=== PATIENT | female | born 1980 | race Two or more races ===

== ENCOUNTER 2024-03-04 10:23 | Emergency (ER) | payer MEDICAID ==
[~2024-03-04] VITALS: Ht 162.6 cm; Wt 58.5 kg
[2024-03-04 10:23] VITALS: BP 103/64; TEMP 98.6
[2024-03-04 11:41] LABS: PREGNANCY TEST URINE QUAL POSITIVE (NEGATIVE)
[2024-03-04 11:44] LABS: APPEARANCE,URINE CLEAR (CLEAR); BILIRUBIN,URINE NEGATIVE (NEGATIVE); BLOOD, URINE NEGATIVE Ery/uL (NEGATIVE); COLOR,URINE YELLOW (YELLOW); KETONES,URINE NEGATIVE (NEGATIVE); LEUKOCYTE ESTERASE ,URINE NEGATIVE (NEGATIVE); NITRITE, URINE POSITIVE (NEGATIVE); PH,URINE 8.5 (5.0-8.0); PROTEIN,URINE NEGATIVE (NEGATIVE); UGLUCOSE NEGATIVE (NEGATIVE); UROBILINOGEN,URINE 0.2 EU/dL (0.2)
[2024-03-04 12:08] LABS: BACTERIA,URINE Many /HPF (None Seen); SQUAMOUS EPITHELIAL CELL,UR Few /HPF (None Seen)
[2024-03-04 12:09] LABS: ADD URINE CULTURE YES; RBC,URINE 0-2 /HPF (0-2); WBC,URINE 21-50 /HPF (0-3)
[2024-03-04] MEDS ORDERED: CEFD300C3 PO (12:28)
[2024-03-04 12:43] VITALS: O2SAT 98
== END 2024-03-04 12:45 | disposition home or self-care (01) ==
LOC: ER 10:39
DX: O23.42 Unspecified infection of urinary tract in pregnancy, second trimester (principal); N39.0 Urinary tract infection, site not specified; Z3A.14 14 weeks gestation of pregnancy
CPT/HCPCS: 81001; 84703-TC